=== PATIENT | male | born 1970 | race American Indian/Alaskan Native ===

== ENCOUNTER 2020-07-28 13:34 | Emergency (ER) | payer BC ==
[2020-07-28 13:44] VITALS: BP 146/93
--- NOTE | 2020-07-28 14:00 | ED Physician Documentation ---
History of Present Illness - Stated complaint Stated Complaint: EYE/EAR STINGING - Chief complaint Chief Complaint: Heent - Additonal information Additional information: 50-year-old male presents the emergency department to make sure that his eye and ear are okay. He was working on his field filter under his vehicle when some gasoline accidentally splashed into his right eye and ear. He had some very brief period of stinging for which he irrigated his eye and ear with water. He then took a shower. The stinging has fully dissipated he has no further symptoms he just wanted to get checked out and make sure he was okay. He denies vision changes. Does not wear contact lenses. Review of Systems Constitutional: reports: Reviewed and negative Eyes: reports: Irritation. denies: Loss of vision, Decreased vision Ears: denies: Loss of hearing, Ear pain Nose: reports: Reviewed and negative Throat: reports: Reviewed and negative Cardiac: reports: Reviewed and negative Respiratory: reports: Reviewed and negative GI: reports: Reviewed and negative PD PAST MEDICAL HISTORY - Present Medications Home Medications: Ambulatory Orders Medication Instructions Recorded Confirmed ARIPiprazole [Abilify] 5 mg PO DAILY 07/28/20 07/28/20 Fluoxetine HCl [Prozac] 40 mg PO DAILY 07/28/20 07/28/20 lamoTRIgine [LaMICtal] 200 mg PO DAILY 07/28/20 07/28/20 - Allergies Allergies/Adverse Reactions: Allergies Allergy/AdvReac Type Severity Reaction Status Date / Time Penicillins Allergy Unknown Verified 07/28/20 13:46 PD ED PE EXPANDED - General General: Alert, No acute distress - HEENT HEENT: Ears normal (Moderate amount of cerumen seen in each external ear canal. No erythema or swelling. Both tympanic membranes are visible without fluid or effusion) - Eyes Eyes: PERRL, Both eyes (Negative fluorescein stain right eye.) - Cardiac Cardiac: Regular Rate - Respiratory Respiratory: Clear to ausultation ksenia Results - Vitals Vitals: Vital Signs - 24 hr 07/28/20 13:41 Temperature 36.3 C L Heart Rate 91 Respiratory 16 Rate Blood Pressure 146/93 H O2 Saturation 96 Oxygen O2 Source Room air PD MEDICAL DECISION MAKING - ED course Complexity details: reviewed results, re-evaluated patient, d/w patient ED course: 50-year-old male presented to the emergency department for evaluation of his right eye and ear when gasoline spilled into them while working on his vehicle. He thoroughly irrigated his eyes at home and no longer has any sensation of burning or stinging. Fluorescein stain was unremarkable as well as a bilateral ear exam. No further care is necessary. Emergent return precautions were discussed. Departure - Departure Disposition: 01 Home, Self Care Clinical Impression: Chemical exposure of eye Condition: Stable Record reviewed to determine appropriate education?: Yes Comments: Colin in the future wear protective eye goggles when working underneath your current using gasoline. As we discussed at the bedside you do not have any burn or abrasion of your eye or inside your ear from the gasoline.
== END 2020-07-28 14:19 | disposition home or self-care (01) ==
LOC: ED 13:34
DX: Z77.098 Contact with and (suspected) exposure to other hazardous, chiefly nonmedicinal, chemicals (principal); X58.XXXA Exposure to other specified factors, initial encounter; Y93.89 Activity, other specified; H57.11 Ocular pain, right eye; H61.23 Impacted cerumen, bilateral
CPT/HCPCS: 99281; 99282